=== PATIENT | male | born 1985 | race Caucasian/White ===

== ENCOUNTER 2017-07-25 18:35 | Emergency (ER) | payer OTHER ==
[~2017-07-25] VITALS: Ht 190.5 cm; Wt 62.6 kg
[~2017-07-25 18:35] MED LIST: .; NAPROSYN500 MG PO
[2017-07-25 19:13] LABS: HEMATOCRIT 43.5 % (38.0-50.0); HEMOGLOBIN 14.9 G/DL (12.5-16.6); MCH 31.5 PG (29.0-34.0); MCHC 34.3 G/DL (30.0-36.0); RBC DIS.WIDTH-CV 13.8 % (11.8-14.6); RBC DIS.WIDTH-SD 47.7 % (39-53); RED BLOOD COUNT 4.73 M/uL (4.00-5.50); WHITE BLOOD COUNT 11.2 K/uL (4.1-10.2)
[2017-07-25 19:23] LABS: CHLORIDE 101 mEq/L (99-109); POTASSIUM 3.6 mEq/L (3.7-5.4); SODIUM 141 mEq/L (136-147)
[2017-07-25 19:25] LABS: GLUCOSE 87 mg/dL (70-99)
[2017-07-25 19:29] LABS: CREATININE 0.8 mg/dL (0.6-1.3); GFR ESTIMATE (CALCULATED) > 59 mL/min/ (58.99-99999)
[2017-07-25 19:30] LABS: UREA NITROGEN (BUN) 12 mg/dL (9-23)
[2017-07-25 19:55] LABS: PLAT.SUFFICIENCY ADEQUATE; PLATELET COUNT 258 K/uL (156-360)
[2017-07-25] MEDS ORDERED: MIRALAX17 GM PO (20:21)
[2017-07-25] MEDS ORDERED: COLACE100 MG PO (20:21)
[2017-07-25 20:48] VITALS: BP 120/69
== END 2017-07-25 20:49 | disposition home or self-care (01) ==
LOC: EME 18:35
DX: K62.5 Hemorrhage of anus and rectum (principal); K59.00 Constipation, unspecified; J45.909 Unspecified asthma, uncomplicated; F17.200 Nicotine dependence, unspecified, uncomplicated; Z88.0 Allergy status to penicillin; Z91.010 Allergy to peanuts
CPT/HCPCS: 80048; 85027; 86850; 86900; 86901; 99281; 99284